=== PATIENT | male | born 1990 ===

== ENCOUNTER 2020-07-05 08:34 | Emergency (ER) | payer SELFPAY ==
[2020-07-05 08:35] VITALS: BP 160/115
--- NOTE | 2020-07-05 09:16 | Emergency Department Report ---
Minor Respiratory - HPI Chief Complaint: Upper Respiratory Infection Stated Complaint: SOB Time Seen by Provider: 07/05/20 09:15 Duration: 1 week Severity: moderate Minor Respiratory: Yes Cough, Yes Shortness of Breath, No Rhinorrhea, No Sore Throat, No Able to Tolerate Fluids, No Ear Pain, No Sick Contacts, No Hemoptysis, No Chest Pain, No Fever Other History: 30-year-old -[place] male presents to the emergency room complaining of shortness of breath and fatigue x1 week. Patient states that he had the same type of episode back in May and was seen by another provider and was given azithromycin and benzonatate and reports that his symptoms had improved. Patient denies any recent travels no cancer. Patient denies any fever chills no nausea no vomiting no sick contact. Patient reports he has had 2- COVID test last one was early May. Patient is never had a HIV test. 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 Patient reports no home meds no known drug allergies. ED Review of Systems ROS: Stated complaint: SOB Other details as noted in HPI Comment: All other systems reviewed and negative ED Past Medical Hx - Past Medical History Previous Medical History?: No - Surgical History Past Surgical History?: No Minor Respiratory Exam - Exam General: Vital signs noted. No distress. Alert and acting appropriately. HEENT: Yes Moist Mucous Membranes, No Rhinorrhea Neck: Yes Supple, No Adenopathy Lungs: Yes Good Air Exchange, No Wheezes, No Ronchi, No Stridor, No Cough, No Labored Respirations, No Retractions, No Use of Accessory Muscles, No Other Abnormal Lung Sounds (Tachypneic) Heart: Yes Regular, No Murmur Abdomen: Yes Normal Bowel Sounds, No Tenderness, No Peritoneal Signs Skin: No Rash, No Edema Neurologic: Alert and oriented, no deficits. Musculoskeletal: Unremarkable. ED Course Vital Signs 07/05/20 08:35 Temperature 97.7 F Pulse Rate 95 H Respiratory 18 Rate Blood Pressure 160/115 [Right] O2 Sat by Pulse 98 Oximetry ED Medical Decision Making - Lab Data Result diagrams: 07/05/20 10:59 07/05/20 10:59 Laboratory Tests 07/05/20 07/05/20 07/05/20 10:59 10:59 10:59 WBC 6.7 RBC 4.79 Hgb 16.9 H Hct 48.1 H MCV 101 H MCH 35 H MCHC 35 H RDW 15.5 H Plt Count 273 Lymph % (Auto) 39.1 H [place] % (Auto) 8.4 H Eos % (Auto) 0.4 Baso % (Auto) 1.1 Lymph # (Auto) 2.6 [place] # (Auto) 0.6 Eos # (Auto) 0.0 Baso # (Auto) 0.1 Seg Neutrophils % 51.0 Seg Neutrophils # 3.4 Sodium 137 Potassium 3.5 L Chloride 95.2 L Carbon Dioxide 24 Anion Gap 21 BUN 18 Creatinine 1.1 Estimated GFR > 60 BUN/Creatinine Ratio 16 Glucose 144 H Calcium 8.9 Total Bilirubin 2.00 H AST 125 H ALT 98 H Alkaline Phosphatase 111 Total Protein 7.3 Albumin 4.4 Albumin/Globulin Ratio 1.5 Urine Opiates Screen Urine Methadone Screen Ur Barbiturates Screen Ur Phencyclidine Scrn Ur Amphetamines Screen U Benzodiazepines Scrn Urine Cocaine Screen U Marijuana (THC) Screen Drugs of Abuse Note Plasma/Serum Alcohol 0.27 H 07/05/20 12:51 WBC RBC Hgb Hct MCV MCH MCHC RDW Plt Count Lymph % (Auto) [place] % (Auto) Eos % (Auto) Baso % (Auto) Lymph # (Auto) [place] # (Auto) Eos # (Auto) Baso # (Auto) Seg Neutrophils % Seg Neutrophils # Sodium Potassium Chloride Carbon Dioxide Anion Gap BUN Creatinine Estimated GFR BUN/Creatinine Ratio Glucose Calcium Total Bilirubin AST ALT Alkaline Phosphatase Total Protein Albumin Albumin/Globulin Ratio Urine Opiates Screen Presumptive negative Urine Methadone Screen Presumptive negative Ur Barbiturates Screen Presumptive negative Ur Phencyclidine Scrn Presumptive negative Ur Amphetamines Screen Presumptive negative U Benzodiazepines Scrn Presumptive negative Urine Cocaine Screen Presumptive negative U Marijuana (THC) Screen Presumptive negative Drugs of Abuse Note Disclamer Plasma/Serum Alcohol - EKG Data EKG shows normal: sinus rhythm Rate: normal - Radiology Data Radiology results: report reviewed Patient: CLIFF LORD MR#: [id number] : 1990 Acct:[id number] Age/Sex: 30 / M ADM Date: 07/05/20 Loc: ED Attending Dr: Ordering Physician: DAX OLIVA MD Date of Service: 07/05/20 Procedure(s): XR chest routine 2V Accession Number(s): [id number] cc: DAX OLIVA MD Fluoro Time In Minutes: CHEST 2 VIEWS INDICATION: SOB. COMPARISON: None FINDINGS: SUPPORT DEVICES: None. HEART: Within normal limits. LUNGS/PLEURA: No acute air space or interstitial disease. No pneumothorax. ADDITIONAL FINDINGS: None. IMPRESSION: 1. No acute findings. Signer Name: Travis Castaneda MD Signed: 07/05/2020 9:24 AM Workstation Name: [id number] Transcribed By: PRESTON Dictated By: Travis Castaneda MD Electronically Authenticated By: Travis Castaneda MD Signed Date/Time: 07/05/20923 DD/ 2 TD/TT: - Medical Decision Making 30-year-old -[place] male presents to the emergency room complaining of shortness of breath and fatigue x1 week. Patient states that he had the same type of episode back in May and was seen by another provider and was given azithromycin and benzonatate and reports that his symptoms had improved. Patient denies any recent travels no cancer. Patient denies any fever chills no nausea no vomiting no sick contact. Patient reports he has had 2- COVID test last one was early May. Patient is never had a HIV test. 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 Patient reports no home meds no known drug allergies. When questioned about alcohol use patient states he drinks every day. CBC CMP chest x-ray UDS blood alcohol level are all ordered. Blood alcohol level 0.27. Patient has elevated liver function bilirubin would suggest chronic alcohol abuse. CBC is within normal limits. Patient was able to sleep for 7 hours. Patient reports he feels much better and is ready to be discharged. Patient appears to be alert and oriented and sound judgment stable to be discharged home. Critical care attestation.: If time is entered above; I have spent that time in minutes in the direct care of this critically ill patient, excluding procedure time. ED Disposition Clinical Impression: Shortness of breath, Alcohol intoxication Disposition: DC-01 TO HOME OR SELFCARE Is pt being admited?: No Does the pt Need Aspirin: No Condition: Stable Instructions: Alcohol Intoxication (ED), Dyspnea (ED) Additional Instructions: All your studies were stable. Your liver shows some liver damage secondary to alcohol intoxication. Your alcohol level was elevated at 0.27. The normal should be less than 0.07. I encourage you to drinking and get into a rehabilitation. Your x-rays were negative for any acute findings. Follow-up with your primary care provider as well as I am referring you to mental health to inquire about rehabilitation for alcoholism. Referrals: PRIMARY CARE, [Primary Care Provider] - 3-5 Days [facility] [Outside] - 3-5 Days [facility] [Outside] - 3-5 Days Forms: Work/School Release Form(ED)
--- NOTE | 2020-07-05 09:28 | XRay Report ---
CHEST 2 VIEWS INDICATION: SOB. COMPARISON: None FINDINGS: SUPPORT DEVICES: None. HEART: Within normal limits. LUNGS/PLEURA: No acute air space or interstitial disease. No pneumothorax. ADDITIONAL FINDINGS: None. IMPRESSION: 1. No acute findings. Signer Name: Travis Castaneda MD Signed: 07/05/2020 9:24 AM Workstation Name: [id number]
[2020-07-05 11:23] LABS: Basophils # (Auto) 0.1 K/mm3 (0.0-0.1); Eosinophils % (Auto) 0.4 % (0.0-4.3); Hematocrit 48.1 % (35.5-45.6); Hemoglobin 16.9 gm/dl (11.8-15.2); Lymphocytes # (Auto) 2.6 K/mm3 (1.2-5.4); Lymphocytes % (Auto) 39.1 % (13.4-35.0); Mean Corpuscular HGB Conc 35 % (32-34); Mean Corpuscular Volume 101 fl (84-94); Monocytes # (Auto) 0.6 K/mm3 (0.0-0.8); Monocytes % (Auto) 8.4 % (0.0-7.3); Platelet Count 273 K/mm3 (140-440); Red Blood Count 4.79 M/mm3 (3.65-5.03); Red Cell Distribution Width 15.5 % (13.2-15.2)
[2020-07-05 11:24] LABS: Basophils % (Auto) 1.1 % (0.0-1.8)
[2020-07-05 11:29] LABS: Alanine Aminotransferase 98 units/L (7-56); Albumin 4.4 g/dL (3.9-5); BUN/Creatinine Ratio 16; Blood Urea Nitrogen 18 mg/dL (9-20); Calcium 8.9 mg/dL (8.4-10.2); Hemolysis Index 13
[2020-07-05 13:13] LABS: Amphetamine Screen,Urine PRESUMPTIVE NEGATIVE; Benzodiazepines Screen,Urine PRESUMPTIVE NEGATIVE; Cannabinoid Screen,Urine PRESUMPTIVE NEGATIVE; Cocaine Screen,Urine PRESUMPTIVE NEGATIVE; Methadone Screen,Urine PRESUMPTIVE NEGATIVE; Opiate Screen,Urine PRESUMPTIVE NEGATIVE
== END 2020-07-05 15:30 | disposition home or self-care (01) ==
LOC: ED 08:34
DX: F10.929 Alcohol use, unspecified with intoxication, unspecified (principal); R06.02 Shortness of breath
CPT/HCPCS: 36415; 71046; 80053; 80307; 80320; 85025; 93005; G0480